=== PATIENT | male | born 1945 | race Caucasian/White ===

== ENCOUNTER 2016-12-24 15:34 | Inpatient (IN) ==
--- NOTE | 2016-12-24 15:55 | Emergency Department Note ---
Jovani Barnett Manpreet, am scribing for, and in the presence of, Eduardo Maradiaga MD 15: 50. Ashwini Barnett James D, MD, personally performed the services described in this documentation, ascribed by Alexandro Hahn in my presence, and it is both accurate and complete 552 . Arrival - Arrival Chief Complaint: GI Bleed/Rectal Stated Complaint: gi bleed Mode of Arrival: Stretcher Limitations: No Limitations Source: Patient, Old Records Reviewed, RN Notes Reviewed Time Seen by Provider: 12/24/16 15:43 - History of Present Illness HPI Narrative: Pt is a 71 y/o male, with PMHx of HTN, who was transferred from [facility] for CC of GI bleeding. Pt states his first stool was dark but then the following stools were bright red. Pt was scoped by Dr. Silva 3 years ago and pt takes an Aleve qd. Pt denies vomiting but c/o abd pain. No other pains/complaints reported to ED. Onset (ago): hour(s) Consistency: constant Severity: moderate Severity scale (1-10): 3 Quality: cramping Allergies/Adverse Reactions: Allergies Allergy/AdvReac Type Severity Reaction Status Date / Time atorvastatin [From Lipitor] Allergy Unknown/Unable Verified 12/24/16 15:47 to obtain meloxicam [From Mobic] Allergy Unknown/Unable Verified 12/24/16 15:47 to obtain Home Medications: Home Medications Medication Instructions Recorded Confirmed Type Acetaminophen Tab [Tylenol Tab] 500 mg PO DAILY PRN 12/24/16 12/24/16 History Calcium (Carbonate) [Caltrate 600] 600 mg PO DAILY 12/24/16 12/24/16 History Carbidopa/Levodopa Cr 50-200 1 tablet PO DAILY 12/24/16 12/24/16 History [Sinemet Cr 50-200] Carvedilol [Coreg] 25 mg PO BID 12/24/16 12/24/16 History Fosinopril Sodium 40 mg PO DAILY 12/24/16 12/24/16 History Gluc Peña/Chondro Peña A/Vit C/Mn 1 each PO BID 12/24/16 12/24/16 History [Glucosamine Chondroitin Tab] Methylcellulose [Fiber Laxative] 500 mg PO DAILY 12/24/16 12/24/16 History Mv-Mins/Folic/Lycopene/Ginkgo [One 1 each PO DAILY 12/24/16 12/24/16 History Daily Men's 50+ Tablet] Naproxen Sodium [Naproxen Sodium 220 mg PO BID 12/24/16 12/24/16 History Tab] Simvastatin 40 mg PO BEDTIME 12/24/16 12/24/16 History Ubidecarenone [Co Q-10] 100 mg PO DAILY 12/24/16 12/24/16 History metFORMIN [Glucophage] 500 mg PO BID 12/24/16 12/24/16 History Review of System - Review of System 12 point system: reviewed and no additional remarkable complaints except as stated - Review of System Constitutional: Absent: chills, diaphoresis, fever Respiratory: Absent: cough, respiratory distress Cardiovascular: Absent: chest pain, dyspnea on exertion Gastrointestinal: Present: abdominal pain, nausea, melena, hematochezia. Absent : vomiting Musculoskeletal: Absent: back pain Medical,Surgical,& Family Hx - Family History Family History: Reports;: Family Diabetes - Social History Smoking Status: Former smoker Exam Vital Signs: Vital Signs Temperature 97.9 F 12/24/16 15:42 Pulse Rate 122 H 12/24/16 15:42 Respiratory Rate 18 12/24/16 15:42 Blood Pressure 134/91 12/24/16 15:42 O2 Sat by Pulse Oximetry 98 12/24/16 15:42 GENERAL: This is a well-nourished well-developed white male in no apparent distress. VITAL SIGNS: Reviewed HEENT: Head is atraumatic and normocephalic. Pupils are equal round react to light. Extraocular movements are intact. Oropharynx is benign with moist mucous membranes. NECK: Neck is soft and supple without tenderness. There are no masses. There is no lymphadenopathy. LUNGS: Lungs are clear to auscultation. Chest rises symmetrically. There is no chest wall tenderness. CV: Heart is regular rate and rhythm without murmurs rubs or gallops. ABDOMEN: Abdomen is soft, nontender to palpation. There are no abdominal abnormal masses palpated. There is no organomegaly. Bowel sounds are present and active. SKIN: Skin is warm and dry. No rash. EXTREMITIES: Patient has full range of motion without tenderness. There is no pedal edema. NEUROLOGIC: Awake alert and oriented 4. Cranial nerves II through XII are grossly intact. Motor is 5 over 5 in all extremities bilaterally. Course - Consultations Consultation #1: Discussed with Dr. Pemberton. Patient will be admitted to his service. Initial orders written for him. He will assume patient's care upon arrival to the [facility]. Time: 15:54 Results - Labs Lab Results: I have reviewed the patients labs Labs: Lab performed at [facility] and reviewed by me: CBC: WBCs 14,800, hemoglobin 12.7, hematocrit 38.9, platelet count 152,000 INR 1.09 Chemistry: Sodium 138, potassium 7.6, chloride 106, CO2 22, BUN 63, creatinine 1.2, glucose 312, ALT 15, AST 10, total bilirubin 0.8 - EKG EKG results: interpreted by ERMD - Impressions EKG performed at [facility]: Sinus tachycardia with a rate of 105 , right bundle branch block, left posterior fascicular block. Disposition Clinical Impression: Acute GI bleeding, Hyperkalemia, Essential hypertension Case discussed with: patient Disposition: Still a Patient Condition: Stable Time of Disposition: 15:54
[2016-12-24 15:59] LABS: Basophils % 0.3 % (0.0-0.8); Eosinophils % 0.1 % (0.00-10.9); Hematocrit 36.7 VOL% (42.0-52.0); Hemoglobin 12.7 GM/DL (14.0-18.0); Immature Granulocytes % 1.9 %; Immature Granulocytes Absolute 0.29 #; Lymphocytes # 2.7 10*3/uL (1.4-4.0); Lymphocytes % 17.6 % (21.2-54.2); Mean Corpuscular HGB Conc 34.6 GM/DL (32-36); Mean Corpuscular Hemoglobin 29 PG (27-34); Mean Corpuscular Volume 82.5 FL (87-102); Monocytes # 0.6 10*3/uL (0.11-0.8); Monocytes % 4.2 % (1.7-12.7); Neutrophils # 11.5 10*3/uL (1.4-7.4); Neutrophils % 75.9 % (38.7-73.9); Platelet Count 146 T/CUMM (130-400); Red Blood Count 4.45 MC/CUMM (3.8-5.5); Red Cell Distribution Width 13.2 % (9.3-17.3); White Blood Count 15.1 T/CUMM (4-12)
[2016-12-24 16:17] LABS: INR 1.1; Partial Thromboplastin Time 24.7 SECS (0-40)
--- NOTE | 2016-12-24 16:19 | XRay Report ---
XR abdomen complete w decub Indication: Gastrointestinal hemorrhage Comparison: None available Findings: No free fluid or free air seen. The bowel gas pattern appears within normal limits. No abnormal calcifications are present. No other abnormality is identified. Impression: No evidence of abnormality demonstrated PROCEDURE INTERPRETED AT [facility] DEPARTMENT OF RADIOLOGY Final Report Signed by: Dr. Gerardo Luther
[2016-12-24 16:22] LABS: Calcium 7.9 MG/DL (8.5-10.1); Osmolality,Calculated 302.7 MOS/KG (273-304); Potassium 5.2 MMOL/L (3.5-5.1)
[2016-12-24] MEDS ORDERED: GLUCAGON 1 MG VIAL IM PRN (17:41)
[2016-12-24] MEDS ORDERED: ONDANSETRON 4 MG/2 ML VIAL IV PRN (17:41)
[2016-12-24] MEDS ORDERED: ACETAMINOPHEN 325 MG TABLET PO PRN (17:41)
[2016-12-24] MEDS ORDERED: DEXTROSE 50% 25 GM/50 ML VIAL IV PRN (17:41)
[2016-12-24] MEDS: SODIUM CHLORIDE 0.9% 1,000 ML IV SCH (18:18)
[2016-12-24] MEDS ORDERED: SODIUM CHLORIDE 0.9% 250 ML IV PRN (18:20)
[2016-12-24] MEDS: INSULIN LISPRO 100 UNIT/ML SUBCUT SCH ×2 (18:27→21:37)
--- NOTE | 2016-12-24 18:45 | Internal Med History&Physical ---
Assessment and Plan (1) Acute GI bleeding Status: Acute Assessment and plan: 71-year-old male admitted to acute care * Acute GI bleeding. Most likely upper GI bleeding with melanotic stools and elevated BUN. Patient has been started on IV fluids. Will do serial H&H and transfuse as needed. GI has been consulted. Probably related to nonsteroidal use. He will probably require an EGD. He had his last EGD by Dr. Silva about 3 years ago. * Hypertension. Will watch blood pressure. Will hold medications * Diabetes. Will keep him on sliding scale. * Hyperkalemia. It is better. Will hold IRENE inhibitor * Coronary artery disease. Stable. * Discussed with patient and his Current Visit: Yes (2) Diabetes Status: Acute Current Visit: Yes (3) Coronary artery disease Status: Acute Current Visit: Yes (4) COPD (chronic obstructive pulmonary disease) Status: Acute Current Visit: Yes (5) Obstructive sleep apnea Status: Acute Current Visit: Yes (6) Dyslipidemia Status: Acute Current Visit: Yes (7) Essential hypertension Status: Acute Current Visit: Yes (8) Hyperkalemia Status: Acute Current Visit: Yes History of Present Illness Chief complaint: Rectal bleeding History of present illness: Mr. Sanchez is a 71 year old male history of coronary artery disease, hypertension , diabetes who was transferred from [place] with complaints of dark black stools since this morning. It was associated with abdominal discomfort. He had several dark melanotic bowel movements. He denies any hematemesis or hematochezia. He denies any chest pain or shortness of breath. He has been taking Aleve twice a day for back pain. He denies any fever or chills. His blood sugars have been running slightly high today. Patient lives at home with his . He is a former smoker. Home Medications Medication Instructions Recorded Confirmed Type Acetaminophen Tab [Tylenol Tab] 500 mg PO DAILY PRN 12/24/16 12/24/16 History Calcium (Carbonate) [Caltrate 600] 600 mg PO DAILY 12/24/16 12/24/16 History Carbidopa/Levodopa Cr 50-200 1 tablet PO DAILY 12/24/16 12/24/16 History [Sinemet Cr 50-200] Carvedilol [Coreg] 25 mg PO BID 12/24/16 12/24/16 History Fosinopril Sodium 40 mg PO DAILY 12/24/16 12/24/16 History Gluc Peña/Chondro Peña A/Vit C/Mn 1 each PO BID 12/24/16 12/24/16 History [Glucosamine Chondroitin Tab] Methylcellulose [Fiber Laxative] 500 mg PO DAILY 12/24/16 12/24/16 History Mv-Mins/Folic/Lycopene/Ginkgo [One 1 each PO DAILY 12/24/16 12/24/16 History Daily Men's 50+ Tablet] Naproxen Sodium [Naproxen Sodium 220 mg PO BID 12/24/16 12/24/16 History Tab] [place]-3/Dha/Epa/Fish Oil [Fish Oil 1 each PO DAILY 12/24/16 12/24/16 History 1,360 mg Softgel] Simvastatin 40 mg PO BEDTIME 12/24/16 12/24/16 History Ubidecarenone [Co Q-10] 100 mg PO DAILY 12/24/16 12/24/16 History metFORMIN [Glucophage] 500 mg PO BID 12/24/16 12/24/16 History Allergies Allergy/AdvReac Type Severity Reaction Status Date / Time atorvastatin [From Lipitor] Allergy Unknown/Unable Verified 12/24/16 15:47 to obtain meloxicam [From Mobic] Allergy Unknown/Unable Verified 12/24/16 15:47 to obtain Medical,Surgical,& Family Hx - Medical History Cardio: History of: CHF, CAD, Hypertension Endocrine: History of: Diabetes Mellitus (NIDDM) Respiratory: History of: COPD, Obstructive Sleep Apnea (On CPAP) Musculoskeletal: History of: Back/Neck Problems - Surgical History Abdominal Surgeries: Surgical HX of: Hernia Repair Orthopedic Surgeries: Surgical HX of;: Orthopedic Surgery (tendon repair in hand ), Spinal Surgery, Total Knee Replacement (Right total knee replacement 2015) - Family History Family History: Reports;: Family Cancer (brother/sister- liver/lung), Family Diabetes (mother), Family Hypertension (mother) Denies;: Family Anesthesia Reaction, Family Heart Disease, Family Hematology , Family Psychiatric Problems, Family Stroke, Additional Family History - Social History Smoking Status: Former smoker Frequency of Alcohol Use: None Type of Drug Use: None Marital Status: Lives With:: Spouse Functional capacity: independent ambulation 12 point system: reviewed and no additional remarkable complaints except as stated (As mentioned in HPI) Exam - Constitutional Vitals: Period Temp Pulse Resp BP Sys/Rosas Pulse Ox Last 24 Hr 97.9 F-98.2 F 110-122 17-21 108-134/70-91 95-98 Exam: Examination: GENERAL: NAD. HEENT: PERRLA. EOMI. Mucous membranes are moist. NECK: Neck is supple. No JVD. No carotid bruit. No thyromegaly. CVS: Tachycardic. S1 and S2 are normal. RESPIRATORY: Lungs are clear. No rales or rhonchi. ABDOMEN: Soft but slightly tender in epigastric region. Bowel sounds are present. No hepatosplenomegaly. No rebound or rigidity EXT: No edema. Peripheral pulses are present. MATRIX REPAIRER: Patient is awake, alert and oriented to time place and person. Cranial nerves II through XII are grossly intact. Motor strength is 5 over 5 both upper and lower extremities. SKIN: Warm and dry. MSK: No obvious deformity. Results - Labs CBC & BMP: 12/24/16 15:50 12/24/16 15:50 Lab Results: I have reviewed the past 24 hour labs
[2016-12-24] MEDS ORDERED: ACETAMINOPHEN 500 MG TABLET PO PRN (19:00)
[2016-12-24] MEDS: DOCUSATE SODIUM 100 MG CAPSULE PO SCH (20:52)
[2016-12-24] MEDS: SIMVASTATIN 40 MG TABLET PO SCH (20:53)
[2016-12-24 21:36] LABS: Hematocrit 32.8 VOL% (42.0-52.0); Hemoglobin 11.3 GM/DL (14.0-18.0)
[2016-12-25 07:18] LABS: Basophils % 0.3 % (0.0-0.8); Eosinophils # 0.1 10*3/uL (0.0-0.87); Eosinophils % 0.7 % (0.00-10.9); Hematocrit 29.2 VOL% (42.0-52.0); Immature Granulocytes % 1.6 %; Immature Granulocytes Absolute 0.14 #; Lymphocytes # 2.5 10*3/uL (1.4-4.0); Lymphocytes % 28.1 % (21.2-54.2); Mean Corpuscular HGB Conc 34.2 GM/DL (32-36); Mean Corpuscular Hemoglobin 28 PG (27-34); Mean Corpuscular Volume 81.6 FL (87-102); Mean Platelet Volume 10.3 FL (9.6-12.0); Monocytes # 0.7 10*3/uL (0.11-0.8); Monocytes % 7.4 % (1.7-12.7); Neutrophils # 5.6 10*3/uL (1.4-7.4); Neutrophils % 61.9 % (38.7-73.9); Platelet Count 110 T/CUMM (130-400); Red Blood Count 3.58 MC/CUMM (3.8-5.5); Red Cell Distribution Width 13.2 % (9.3-17.3)
[2016-12-25 07:38] LABS: Calcium 7.8 MG/DL (8.5-10.1); Osmolality,Calculated 296.1 MOS/KG (273-304)
[2016-12-25] MEDS: SODIUM CHLORIDE 0.9% 1,000 ML IV SCH ×3 (08:55→21:23)
[2016-12-25] MEDS: INSULIN LISPRO 100 UNIT/ML SUBCUT SCH ×4 (08:56→21:25)
[2016-12-25] MEDS: CALCIUM (CARBONATE) 600 MG TABLET PO SCH (08:56)
[2016-12-25] MEDS: DOCUSATE SODIUM 100 MG CAPSULE PO SCH ×2 (08:57→21:25)
[2016-12-25] MEDS: CARBIDOPA/LEVODOPA CR 50-200 MG TABLET PO SCH (08:57)
[2016-12-25] MEDS: OMEGA 3 ACID ETHYL ESTERS 1 GM CAPSULE PO SCH (08:58)
[2016-12-25] MEDS ORDERED: PANTOPRAZOLE 40 MG TABLET PO SCH (09:00)
[2016-12-25] MEDS ORDERED: METHYLCELLULOSE 500 MG TABLET PO SCH (09:00)
--- NOTE | 2016-12-25 10:32 | Internal Med Progress Note ---
Assessment and Plan (1) Acute GI bleeding Status: Acute Assessment and plan: 71-year-old male admitted to acute care * Acute GI bleeding. Hematocrit has decreased further. He is hemodynamically stable. GI to see patient. Possible EGD in the bone * Hypertension. Will watch blood pressure. * Diabetes. Will keep him on sliding scale. * Coronary artery disease. Stable. * Discussed with patient Current Visit: Yes (2) Diabetes Status: Acute Current Visit: Yes (3) Coronary artery disease Status: Acute Current Visit: Yes (4) COPD (chronic obstructive pulmonary disease) Status: Acute Current Visit: Yes (5) Obstructive sleep apnea Status: Acute Current Visit: Yes (6) Dyslipidemia Status: Acute Current Visit: Yes (7) Essential hypertension Status: Acute Current Visit: Yes (8) Hyperkalemia Status: Acute Current Visit: Yes Internal Medicine - PN: Subj Interval history: He is feeling better this morning. He is still having black stool. He denies any chest pain or shortness of breath. He is still having midepigastric pain but it is better Exam (Progress Note) - Constitutional Vitals: Period Temp Pulse Resp BP Sys/Rosas Pulse Ox Last 24 Hr 97.0 F-98.4 F 88-126 16-21 99-134/60-91 95-98 Exam: Examination: GENERAL: NAD. NECK: Neck is supple. CVS: Tachycardic. S1 and S2 are normal. RESPIRATORY: Lungs are clear. ABDOMEN: Soft but slightly tender in epigastric region. EXT: No edema. TABLE ASSEMBLER METAL: Nonfocal SKIN: Warm and dry. MSK: No obvious deformity. Results - Labs CBC & BMP: 12/25/16 06:08 12/25/16 06:08 Lab Results: I have reviewed the past 24 hour labs
--- NOTE | 2016-12-25 11:37 | Gastrointestinal Consult Note ---
Assessment and Plan - Time spent with patient Time spent with patient: Greater than 30 minutes (1) Melena Status: Acute Current Visit: Yes (2) Hematochezia Status: Acute Current Visit: Yes (3) Acute post-hemorrhagic anemia Status: Acute Current Visit: Yes (4) Acute GI bleeding Status: Acute Assessment and plan: PLEASE NOTE -- automatic citation of patient information is unavoidable in this electronic note. I have made a reasonable effort to review the information cited , but it is not a part of my evaluation, impression, or recommendation unless specifically discussed in the dictated text that follows. As well, voice recognition software was used in the creation of this clinical note. Reasonable effort was made to identify and correct gross errors. Despite proofreading, errors in field services analyst may be present, including nonsense verbiage at times. If you encounter such an error, please contact me at for discussion and correction. -- Dr. Ingram Chief complaint/Consult Question: Melena with acute posthemorrhagic anemia Consult requested by: Hospitalist serviceNilay History of present illness: This is a new patient, a 71-year-old man with colonoscopy 3 years ago presenting with melena that started yesterday morning, associated with very mild abdominal soreness, stool frequency, approximately 9-10 bowel movements yesterday. Patient reporting melena as well as some red blood. He has only had one bowel movement today, and states that he is feeling well. Denied abdominal pain, diarrhea, fevers, nausea, vomiting, heartburn, regurgitation, dysphagia, changes in his weight. Only symptomatology leading up to this event was nighttime flatulence for 1 or 2 nights, and notable left red eye, not associated with pain or vision changes, at which time his RN encouraged him to decrease his NSAIDs. Denies any shortness of breath, chest pain, orthostasis. Patient is taking naproxen twice daily, no other blood thinners. He was given a full diet this morning which he tolerated well. Upon admission, hemoglobin was 12.2 is now decreased to 10, normal platelets, creatinine 1.1 , INR 1.1 GI review of systems included: heartburn, regurgitation, early satiety, dysphagia, odynophagia, abdominal pain, nausea, vomiting, hematemesis, weight loss, weight gain, fever, chills, fatigue, decreased appetite, diarrhea, constipation, hematochezia, melena, bloating, malodorous flatus, anal pain, or NSAID use, and was negative except as noted above. REVIEW OF SYSTEMS: Complete other review of systems negative except as noted in the HPI: Chronic joint pain for years, including left hip, neck for he had surgery, right knee that he had replaced recently. Outpatient medications: [Personally reviewed No PPI Naproxen twice daily Inpatient medications: Personally reviewed Protonix 40 mg p.o. daily Past Medical History: personally reviewed -prior severe systolic CHF, reported resolved -benign neoplasm of the colon Social history: [prior tobacco. negative Alcohol Family history: No GI related disease or malignancy Brother with lung cancer, another brother with prostate cancer PHYSICAL EXAMINATION: CONSTITUTIONAL: Vital signs reviewed as documented above. In no acute distress. Nontoxic-appearing. EYES: Anicteric conjunctiva. Extra-ocular movements are intact and symmetric. Left eye with mild diffuse erythema. EARS: Able to hear speech at conversational volume level, no external trauma/ masses. MOUTH: No oral/mouth lesions or ulcers. NECK: No masses or crepitus. Thyroid is of normal size and symmetric. HEART: Regular rate, regular rhythm LUNGS: Clear to auscultation bilaterally no increased work of breathing or accessory muscle use. GI/ABDOMEN: Nonobese abdomen, soft, nontender to deep palpation diffusely in the abdomen, no rebound tenderness, nondistended, no rigidity. No palpable mass. No appreciable hepatosplenomegaly. SKIN: No rash on face, arms, or hands. No palpable lesions MUSCULOSKELETAL: Normal gait. Muscle tone appears normal without any abnormal movements. PSYCH: Normal affect. Alert and oriented to person, place, and time. Laboratory: Personally reviewed Significant for hemoglobin drop from 12.7-11.3-10.0/12 hours. MCV 82.5, platelet count 146 dropped to 110 INR 1.1 BUN on admission 68, creatinine 1.1, now improved to 41, 0.8 Radiology: Personally reviewed reports and images Abdominal x-ray with no free fluid or air seen, normal bowel gas pattern, no abnormal calcifications. Assessments: #Gastrointestinal bleeding: Acute. Suspect upper GI bleed with the presence of melena, significant elevation of BUN to creatinine ratio. Patient not on any blood thinners, normal INR. Suspect most likely etiology is peptic ulcer disease from chronic NSAID use. Other differential diagnosis include GI related malignancy, AVM, visible vessel versus other. Patient with normal colonoscopy reported 3 years ago, without family history. Bright red blood mixed in the stool cannot eliminate the possibility of lower GI bleed versus rapid upper GI bleed, although patient clinically very stable. Receive full diet overnight and this morning, making EGD relatively contraindicated today, and no apparent acute need. #acute posthemorrhagic anemia #Other specified counseling -- The patient was seen for greater than 30 minutes. The patient was counseled for greater than 50% of this time regarding differential diagnosis, likely diagnosis, diagnostic and therapeutic alternatives, risks/benefits/alternatives of medications and procedures, and plan of care generally. The patient expressed understanding and wishes to proceed. Recommendations: -Change patient clear liquid diet -Change Protonix to 40 mg IV twice daily -Stop all NSAIDs now and as an outpatient indefinitely, Tylenol is safe, up to 3000 mg daily for pain -N.p.o. at midnight for EGD tomorrow -EGD Monday with Dr. Silva -If no source of bleeding identified on EGD, patient may require colonoscopy on Monday, pending clinical course -Continue to monitor vital signs, hemoglobin, fluid resuscitation and transfusion for hemoglobin less than 8 -Consider IV or oral iron replacement if transfusion is not needed during this admission Helen Ingram MD, MPH STAFF EXCAVATING SUPERVISOR Current Visit: Yes History of Present Illness History of present illness: Mr. Sanchez is a 71 year old male Home Medications Medication Instructions Recorded Confirmed Type Acetaminophen Tab [Tylenol Tab] 500 mg PO DAILY PRN 12/24/16 12/24/16 History Calcium (Carbonate) [Caltrate 600] 600 mg PO DAILY 12/24/16 12/24/16 History Carbidopa/Levodopa Cr 50-200 1 tablet PO DAILY 12/24/16 12/24/16 History [Sinemet Cr 50-200] Carvedilol [Coreg] 25 mg PO BID 12/24/16 12/24/16 History Fosinopril Sodium 40 mg PO DAILY 12/24/16 12/24/16 History Gluc Peña/Chondro Peña A/Vit C/Mn 1 each PO BID 12/24/16 12/24/16 History [Glucosamine Chondroitin Tab] Methylcellulose [Fiber Laxative] 500 mg PO DAILY 12/24/16 12/24/16 History Mv-Mins/Folic/Lycopene/Ginkgo [One 1 each PO DAILY 12/24/16 12/24/16 History Daily Men's 50+ Tablet] Naproxen Sodium [Naproxen Sodium 220 mg PO BID 12/24/16 12/24/16 History Tab] [place]-3/Dha/Epa/Fish Oil [Fish Oil 1 each PO DAILY 12/24/16 12/24/16 History 1,360 mg Softgel] Simvastatin 40 mg PO BEDTIME 12/24/16 12/24/16 History Ubidecarenone [Co Q-10] 100 mg PO DAILY 12/24/16 12/24/16 History metFORMIN [Glucophage] 500 mg PO BID 12/24/16 12/24/16 History Allergies Allergy/AdvReac Type Severity Reaction Status Date / Time atorvastatin [From Lipitor] Allergy Unknown/Unable Verified 12/24/16 15:47 to obtain meloxicam [From Mobic] Allergy Unknown/Unable Verified 12/24/16 15:47 to obtain Medical,Surgical,& Family Hx - Medical History Cardio: History of: CHF, CAD, Hypertension Endocrine: History of: Diabetes Mellitus (NIDDM) Respiratory: History of: COPD, Obstructive Sleep Apnea (On CPAP) Musculoskeletal: History of: Back/Neck Problems - Surgical History Abdominal Surgeries: Surgical HX of: Hernia Repair Orthopedic Surgeries: Surgical HX of;: Orthopedic Surgery (tendon repair in hand ), Spinal Surgery, Total Knee Replacement (Right total knee replacement 2015) - Family History Family History: Reports;: Family Cancer (brother/sister- liver/lung), Family Diabetes (mother), Family Hypertension (mother) Denies;: Family Anesthesia Reaction, Family Heart Disease, Family Hematology , Family Psychiatric Problems, Family Stroke, Additional Family History - Social History Smoking Status: Former smoker Frequency of Alcohol Use: None Type of Drug Use: None Exam - Constitutional Vitals: Period Temp Pulse Resp BP Sys/Rosas Pulse Ox Last 24 Hr 97.0 F-98.4 F 88-126 16-21 99-134/60-91 95-98 Results - Labs CBC & BMP: 12/25/16 06:08 12/25/16 06:08
[2016-12-25] MEDS: MULTIVITAMIN (CENTRUM) TABLET PO SCH (11:57)
[2016-12-25] MEDS: COENZYME Q10 100 MG CAPSULE PO SCH (11:57)
[2016-12-25] MEDS: PANTOPRAZOLE 40 MG VIAL IV SCH ×2 (13:04→21:24)
[2016-12-25] MEDS: CARVEDILOL 3.125 MG TABLET PO SCH (21:24)
[2016-12-25] MEDS: SIMVASTATIN 40 MG TABLET PO SCH (21:24)
[2016-12-26 06:57] LABS: Calcium 7.7 MG/DL (8.5-10.1); Osmolality,Calculated 281.4 MOS/KG (273-304); Potassium 3.6 MMOL/L (3.5-5.1)
[2016-12-26 07:35] LABS: Basophils % 0.2 % (0.0-0.8); Eosinophils # 0.1 10*3/uL (0.0-0.87); Eosinophils % 1.6 % (0.00-10.9); Hematocrit 22.7 VOL% (42.0-52.0); Immature Granulocytes Absolute 0.15 #; Lymphocytes # 1.5 10*3/uL (1.4-4.0); Lymphocytes % 29.3 % (21.2-54.2); Mean Corpuscular HGB Conc 35.2 GM/DL (32-36); Mean Corpuscular Hemoglobin 29 PG (27-34); Mean Corpuscular Volume 81.1 FL (87-102); Mean Platelet Volume 10.1 FL (9.6-12.0); Monocytes # 0.4 10*3/uL (0.11-0.8); Monocytes % 7.7 % (1.7-12.7); Neutrophils # 2.9 10*3/uL (1.4-7.4); Neutrophils % 58.2 % (38.7-73.9); Red Cell Distribution Width 13.2 % (9.3-17.3)
[2016-12-26 07:36] LABS: Platelet Count 80 T/CUMM (130-400)
[2016-12-26 07:39] LABS: Hypochromasia 1+; Ovalocytes Slight; Platelet Estimate Decreased
[2016-12-26 07:40] LABS: Microcytosis Slight
--- NOTE | 2016-12-26 09:00 | Internal Med Progress Note ---
Assessment and Plan (1) Acute GI bleeding Status: Acute Assessment and plan: 71-year-old male admitted to acute care * Acute GI bleeding. Hematocrit is much lower at 22. He will be transfused 2 units of packed RBCs. He is hemodynamically stable. He will have an EGD done today * Hypertension. Will watch blood pressure. * Diabetes. Will keep him on sliding scale. * Coronary artery disease. Stable. * Discussed with patient and his Current Visit: Yes (2) Diabetes Status: Acute Current Visit: Yes (3) Coronary artery disease Status: Acute Current Visit: Yes (4) COPD (chronic obstructive pulmonary disease) Status: Acute Current Visit: Yes (5) Obstructive sleep apnea Status: Acute Current Visit: Yes (6) Dyslipidemia Status: Acute Current Visit: Yes (7) Essential hypertension Status: Acute Current Visit: Yes (8) Hyperkalemia Status: Acute Current Visit: Yes Internal Medicine - PN: Subj Interval history: He is feeling better this morning. Patient had emesis which was coffee-ground last night. He denies any abdominal pain now. He denies any nausea or vomiting since last night Exam (Progress Note) - Constitutional Vitals: Period Temp Pulse Resp BP Sys/Rosas Pulse Ox Last 24 Hr 96.9 F-98.0 F 64-83 18-21 100-123/52-71 92-97 Exam: Examination: GENERAL: NAD. NECK: Neck is supple. CVS: Tachycardic. S1 and S2 are normal. RESPIRATORY: Lungs are clear. ABDOMEN: Soft and nontender EXT: No edema. FURNACE TAPPER: Nonfocal SKIN: Warm and dry. MSK: No obvious deformity. Results - Labs CBC & BMP: 12/26/16 07:03 12/26/16 05:24 Lab Results: I have reviewed the past 24 hour labs
--- NOTE | 2016-12-26 09:36 | EKG Report ---
Stationary ECG Study [facility] Test Date: 12/26/2016 8:27:52 AM Pat Name: RUBIA MENDEZ Department: Room: 541 Gender: M Clinical Instructor: CARMELO : 1945 Requested by: Rocael Chowdary Order Number: [id number] Reading MD: JULISSA THIBODEAUX Intervals [place] Rate: 67 P: 76 WV: 214 QRS: 97 QRSD: 152 T: 87 QT: 425 QTc: 440 Interpretive Statements SINUS RHYTHM WITH PROLONGED WV INTERVAL WITH OCCASIONAL VENTRICULAR PREMATURE COMPLEXES RIGHT BUNDLE BRANCH BLOCK LOW VOLTAGE IN THE LIMB LEADS Electronically Signed On 12-27-16 05:34:04 CDT by JULISSA THIBODEAUX [email or web address]
[2016-12-26] MEDS: SODIUM CHLORIDE 0.9% 1,000 ML IV SCH ×2 (09:44→17:03)
[2016-12-26] MEDS: Gluc Su/Chondro Su A/Vit C/Mn [Glucosamine Chondroitin Tab] 1 EA PO SCH ×3 (09:44→21:00)
[2016-12-26] MEDS: INSULIN LISPRO 100 UNIT/ML SUBCUT SCH ×4 (09:44→21:00)
[2016-12-26] MEDS ORDERED: LIDOCAINE 2% 5 ML VIAL ONE (12:17)
[2016-12-26] MEDS ORDERED: PROPOFOL 200 MG/20 ML VIAL IV ONE (12:17)
--- NOTE | 2016-12-26 12:18 | History and Physical Update ---
History and Physical Update - History and Physical H&P was reviewed, the patient examined and there: are no changes in the patients condition since last H&P was completed. - Physical Exam Mental Status: alert and oriented Heart: regular rate and rhythm Lung: clear to auscultation Abdomen: within normal limits Vitals: within normal limits
--- NOTE | 2016-12-26 12:25 | Operative Note ---
Date of procedure: 12/26/16 Pre-op diagnosis: GI bleed with melena Procedure: Procedure: Esophagogastroduodenoscopy Brief clinical abstract: 71-year-old male was admitted onset of melena. He also had one episode of coffee-ground emesis last night. Patient's hemodynamics have been normal since presentation but hemoglobin has fallen to 8.0 and he was transfused this morning. Indication for procedure: Upper GI bleeding Endoscopic findings:[After informed consent was obtained, the patient was placed in the left lateral decubitus position. The gastroscope was inserted in the upper esophagus under direct vision with no resistance encountered. Esophageal mucosa appeared normal with squamocolumnar junction sharply demarcated above a small hiatal hernia approximately 1-2 cm in length. The endoscope was advanced in the stomach which was carefully examined including retroflexed view of the cardia and fundus. No blood was seen in the stomach. Some scattered areas of subepithelial hemorrhage were noted in the proximal fundus and could be related to recent vomiting. Remainder the stomach appeared normal. The pyloric channel was normal. In the apex of the duodenal bulb there was an approximately 1 cm diameter white based ulcer with no visible vessel or adherent clot. Second and third portion of the duodenum were normal. The endoscope was removed and patient appeared to tolerate the procedure well. Impression: #1 duodenal bulb ulcer-appears to be source of bleeding; appearance suggests low risk of further significant bleeding #2 small hiatal hernia Recommendations: Continue PPI therapy for now. Advance diet and could probably discharge tomorrow if stable. With duodenal bulb location of ulcer, would plan treatment for Helicobacter pylori. Also ask about nonsteroidal use and have him discontinue if taking. Anesthesia: MAC Surgeon / Physician: Jethro Silva Estimated blood loss: none Specimens: none sent Condition: stable Disposition: post procedure unit Results - Labs CBC & BMP: 12/26/16 07:03 12/26/16 05:24 Discharge Plan - Discharge Medications No Action Ubidecarenone [Co Q-10] 100 mg PO DAILY Methylcellulose [Fiber Laxative] 500 mg PO DAILY Naproxen Sodium [Naproxen Sodium Tab] 220 mg PO BID Calcium (Carbonate) [Caltrate 600] 600 mg PO DAILY Acetaminophen Tab [Tylenol Tab] 500 mg PO DAILY PRN PRN Reason: Pain Mv-Mins/Folic/Lycopene/Ginkgo [One Daily Men's 50+ Tablet] 1 each PO DAILY Simvastatin 40 mg PO BEDTIME Carvedilol [Coreg] 25 mg PO BID Fosinopril Sodium 40 mg PO DAILY Gluc Peña/Chondro Peña A/Vit C/Mn [Glucosamine Chondroitin Tab] 1 each PO BID metFORMIN [Glucophage] 500 mg PO BID Carbidopa/Levodopa Cr 50-200 [Sinemet Cr 50-200] 1 tablet PO DAILY [place]-3/Dha/Epa/Fish Oil [Fish Oil 1,360 mg Softgel] 1 each PO DAILY - Follow Up or Referral - Forms/Instructions
--- NOTE | 2016-12-26 13:49 | Anesthesia Post-Op ---
Anesthesia Post OP - Post Ansesthetic Evaluation Patient seen in post op: Yes Resp: within normal limits CV: within normal limits Mental: within normal limits Temp: within normal limits [id number]: within normal limits Nausea and Vomiting: within normal limits Pain: within normal limits
[2016-12-26] MEDS: COENZYME Q10 100 MG CAPSULE PO SCH (14:52)
[2016-12-26] MEDS: CALCIUM (CARBONATE) 600 MG TABLET PO SCH (14:52)
[2016-12-26] MEDS: DOCUSATE SODIUM 100 MG CAPSULE PO SCH ×2 (14:52→21:50)
[2016-12-26] MEDS: CARBIDOPA/LEVODOPA CR 50-200 MG TABLET PO SCH (14:52)
[2016-12-26] MEDS: CARVEDILOL 3.125 MG TABLET PO SCH ×2 (14:52→21:51)
[2016-12-26] MEDS: PANTOPRAZOLE 40 MG VIAL IV SCH ×2 (14:53→21:51)
[2016-12-26] MEDS: METHYLCELLULOSE 500 MG TABLET PO SCH (14:53)
[2016-12-26] MEDS: MULTIVITAMIN (CENTRUM) TABLET PO SCH (14:53)
[2016-12-26] MEDS: OMEGA 3 ACID ETHYL ESTERS 1 GM CAPSULE PO SCH (14:53)
[2016-12-26 20:02] LABS: Hematocrit 27.3 VOL% (42.0-52.0); Hemoglobin 9.4 GM/DL (14.0-18.0)
[2016-12-26] MEDS: SIMVASTATIN 40 MG TABLET PO SCH (21:50)
[2016-12-27] MEDS: SODIUM CHLORIDE 0.9% 1,000 ML IV SCH ×2 (00:12→12:13)
[2016-12-27 06:51] LABS: Basophils % 0.2 % (0.0-0.8); Eosinophils # 0.1 10*3/uL (0.0-0.87); Eosinophils % 1.3 % (0.00-10.9); Hematocrit 28.2 VOL% (42.0-52.0); Hemoglobin 9.8 GM/DL (14.0-18.0); Immature Granulocytes % 2.8 %; Immature Granulocytes Absolute 0.15 #; Lymphocytes # 1.4 10*3/uL (1.4-4.0); Lymphocytes % 26.5 % (21.2-54.2); Mean Corpuscular HGB Conc 34.8 GM/DL (32-36); Mean Corpuscular Hemoglobin 29 PG (27-34); Mean Corpuscular Volume 82.5 FL (87-102); Mean Platelet Volume 9.4 FL (9.6-12.0); Monocytes # 0.4 10*3/uL (0.11-0.8); Monocytes % 6.9 % (1.7-12.7); Neutrophils # 3.3 10*3/uL (1.4-7.4); Neutrophils % 62.3 % (38.7-73.9); Platelet Count 79 T/CUMM (130-400); Red Blood Count 3.42 MC/CUMM (3.8-5.5); Red Cell Distribution Width 13.4 % (9.3-17.3); White Blood Count 5.4 T/CUMM (4-12)
[2016-12-27 07:04] LABS: Osmolality,Calculated 282.4 MOS/KG (273-304); Potassium 3.7 MMOL/L (3.5-5.1)
[2016-12-27 07:09] LABS: Platelet Estimate Decreased
--- NOTE | 2016-12-27 09:02 | Gastrointestinal Progress Note ---
Assessment and Plan (1) Acute GI bleeding Status: Acute Assessment and plan: 12/27-no further overt bleeding. EGD findings as below. H&H is holding stable. Change to oral Protonix and discharge home on Protonix twice daily. Reemphasized importance of no NSAID use. We will plan to treat for H. pylori due to location of ulcer. Okay to discharge from GI standpoint. Follow-up as needed with Dr. Silva. Plan an addendum to followed by Dr. Silva. Current Visit: Yes Gastroenterology - PN: Subj Interval history: CC: GI bleed Patient is seen, awake and alert with family at bedside. States he had an uneventful night and is feeling better today. He denies any abdominal pain, nausea or vomiting. She denies any overt bleeding. EGD findings noted on yesterday with duodenal bulb ulcer appearing to be the source of the bleeding however low risk for further bleed as well as small hiatal hernia. Patient is tolerating his diet well and denies any pain with eating. His H&H is stable at 03/02. Abdomen soft, nontender. ROS: Denies shortness of breath or chest pain Exam (Progress Note) - Constitutional Vitals: Period Temp Pulse Resp BP Sys/Rosas Pulse Ox Last 24 Hr 96.9 F-98.3 F 54-78 16-20 88-133/42-067 92-100 General appearance: normal weight, no acute distress - Head Head exam: Present: normal inspection, normocephalic - Eye Eye exam: Present: other (Lids and conjunctive are unremarkable). Absent: scleral icterus - ENT ENT exam: Present: normal exam, normal oropharynx - Neck Neck exam: Present: normal inspection - Respiratory Respiratory exam: Present: clear to auscultation bilaterally. Absent: rales, rhonchi, wheezes - Cardiovascular Cardiovascular exam: Present: regular rate and rhythm. Absent: diastolic murmur , JVD, systolic murmur - GI/Abdominal GI/Abdominal exam: Present: normal bowel sounds, soft. Absent: ascites, distended, mass, organomegaly, tenderness - Extremities Exam Extremities exam: Present: normal inspection, full ROM - Back Exam Back exam: Present: normal inspection - Neurological Exam Neurological exam: Present: alert, oriented X3 - Psychiatric Psychiatric exam: Present: normal affect, normal mood - Skin Skin exam: Present: normal color, warm, dry Results - Labs CBC & BMP: 12/27/16 06:34 12/27/16 06:34 Lab Results: I have reviewed the past 24 hour labs
[2016-12-27] MEDS: INSULIN LISPRO 100 UNIT/ML SUBCUT SCH ×4 (09:06→22:25)
[2016-12-27] MEDS: MULTIVITAMIN (CENTRUM) TABLET PO SCH (09:07)
[2016-12-27] MEDS: METHYLCELLULOSE 500 MG TABLET PO SCH (09:07)
[2016-12-27] MEDS: OMEGA 3 ACID ETHYL ESTERS 1 GM CAPSULE PO SCH (09:07)
[2016-12-27] MEDS: CARVEDILOL 3.125 MG TABLET PO SCH ×2 (09:07→22:24)
[2016-12-27] MEDS: DOCUSATE SODIUM 100 MG CAPSULE PO SCH ×2 (09:07→22:24)
[2016-12-27] MEDS: CALCIUM (CARBONATE) 600 MG TABLET PO SCH (09:07)
[2016-12-27] MEDS: CARBIDOPA/LEVODOPA CR 50-200 MG TABLET PO SCH (09:07)
[2016-12-27] MEDS: Gluc Su/Chondro Su A/Vit C/Mn [Glucosamine Chondroitin Tab] 1 EA PO SCH ×2 (09:08→22:25)
[2016-12-27] MEDS: PANTOPRAZOLE 40 MG VIAL IV SCH (09:10)
--- NOTE | 2016-12-27 09:41 | Internal Med Progress Note ---
Assessment and Plan (1) Acute GI bleeding Status: Acute Assessment and plan: 71-year-old male admitted to acute care * Acute GI bleeding. Hematocrit is stable after transfusion. Results of EGD noted. Will watch another day with hematocrit. Patient lives far away from the hospital * Hypertension. Will watch blood pressure. * Diabetes. Will keep him on sliding scale. * Coronary artery disease. Stable. * Discussed with patient and his Current Visit: Yes (2) Diabetes Status: Acute Current Visit: Yes (3) Coronary artery disease Status: Acute Current Visit: Yes (4) COPD (chronic obstructive pulmonary disease) Status: Acute Current Visit: Yes (5) Obstructive sleep apnea Status: Acute Current Visit: Yes (6) Dyslipidemia Status: Acute Current Visit: Yes (7) Essential hypertension Status: Acute Current Visit: Yes (8) Hyperkalemia Status: Acute Current Visit: Yes Internal Medicine - PN: Subj Interval history: He is feeling better this morning. No melena or hematochezia. His abdominal pain is better Exam (Progress Note) - Constitutional Vitals: Period Temp Pulse Resp BP Sys/Rosas Pulse Ox Last 24 Hr 96.9 F-98.3 F 54-78 16-20 88-133/42-067 92-100 Exam: Examination: GENERAL: NAD. NECK: Neck is supple. CVS: Tachycardic. S1 and S2 are normal. RESPIRATORY: Lungs are clear. ABDOMEN: Soft and nontender EXT: No edema. [employer] SUPERVISOR: Nonfocal SKIN: Warm and dry. Results - Labs CBC & BMP: 12/27/16 06:34 12/27/16 06:34 Lab Results: I have reviewed the past 24 hour labs
[2016-12-27] MEDS: COENZYME Q10 100 MG CAPSULE PO SCH (12:13)
[2016-12-27 17:17] LABS: Hematocrit 27.9 VOL% (42.0-52.0); Hemoglobin 9.6 GM/DL (14.0-18.0)
[2016-12-27] MEDS ORDERED: SODIUM CHLORIDE 0.9% 250 ML IV PRN (17:50)
[2016-12-27] MEDS: SIMVASTATIN 40 MG TABLET PO SCH (22:24)
[2016-12-27] MEDS: PANTOPRAZOLE 40 MG TABLET PO SCH (22:24)
[2016-12-28 07:34] LABS: Basophils % 0.2 % (0.0-0.8); Eosinophils # 0.1 10*3/uL (0.0-0.87); Eosinophils % 2.5 % (0.00-10.9); Hematocrit 32.7 VOL% (42.0-52.0); Hemoglobin 11.1 GM/DL (14.0-18.0); Immature Granulocytes % 3.9 %; Lymphocytes # 1.5 10*3/uL (1.4-4.0); Lymphocytes % 29.8 % (21.2-54.2); Mean Corpuscular HGB Conc 33.9 GM/DL (32-36); Mean Corpuscular Hemoglobin 29 PG (27-34); Mean Corpuscular Volume 84.1 FL (87-102); Monocytes # 0.4 10*3/uL (0.11-0.8); Monocytes % 6.8 % (1.7-12.7); NRBC # 0.02 10*3/uL; Neutrophils # 2.9 10*3/uL (1.4-7.4); Neutrophils % 56.8 % (38.7-73.9); Platelet Count 78 T/CUMM (130-400); Red Blood Count 3.89 MC/CUMM (3.8-5.5); Red Cell Distribution Width 14.2 % (9.3-17.3); White Blood Count 5.2 T/CUMM (4-12)
[2016-12-28 08:07] VITALS: BP 140/75
[2016-12-28 08:08] LABS: Osmolality,Calculated 282.3 MOS/KG (273-304); Potassium 3.6 MMOL/L (3.5-5.1)
[2016-12-28 08:21] LABS: Hypochromasia Slight; Platelet Estimate Decreased
--- NOTE | 2016-12-28 08:25 | Gastrointestinal Progress Note ---
Assessment and Plan (1) Acute GI bleeding Status: Acute Assessment and plan: 12/28-H&H improved following transfusion on yesterday of 2 units packed red blood cells. No overt bleeding. Tolerating diet. Discussed H. pylori treatment at discharge. Plan an addendum to followed by Dr. Silva. 12/27-no further overt bleeding. EGD findings as below. H&H is holding stable. Change to oral Protonix and discharge home on Protonix twice daily. Reemphasized importance of no NSAID use. We will plan to treat for H. pylori due to location of ulcer. Okay to discharge from GI standpoint. Follow-up as needed with Dr. Silva. Plan an addendum to followed by Dr. Silva. Current Visit: Yes Gastroenterology - PN: Subj Interval history: CC: GI bleed Patient is seen, awake and alert ambulating around room. is at bedside. States he had an uneventful night other than not sleeping much due to he received 2 more units of packed red blood cells on yesterday evening. He denies any abdominal pain, nausea or vomiting. He is tolerating his diet well at this time. H&H is noted to be up from yesterday at . Discussed with patient the plans to treat his H. pylori upon discharge. Explained to patient to also hold his simvastatin while taking these antibiotics due to possible interaction. Patient also instructed to remain on his Protonix at twice daily at the end of the 10 days of therapy. Patient verbalizes understanding. Abdomen is soft, nontender. He is for possible discharge home today. ROS: Denies shortness of breath or chest pain Exam (Progress Note) - Constitutional Vitals: Period Temp Pulse Resp BP Sys/Rosas Pulse Ox Last 24 Hr 96.6 F-98.4 F 58-75 18-95 111-140/63-75 93-995 General appearance: normal weight, no acute distress - Head Head exam: Present: normal inspection, normocephalic - Eye Eye exam: Present: other (Lids and conjunctivae are unremarkable). Absent: scleral icterus - ENT ENT exam: Present: normal exam, normal oropharynx - Neck Neck exam: Present: normal inspection - Respiratory Respiratory exam: Present: clear to auscultation bilaterally. Absent: rales, rhonchi, wheezes - Cardiovascular Cardiovascular exam: Present: regular rate and rhythm. Absent: diastolic murmur , JVD, systolic murmur - GI/Abdominal GI/Abdominal exam: Present: normal bowel sounds, soft. Absent: ascites, distended, mass, organomegaly, tenderness - Extremities Exam Extremities exam: Present: normal inspection, full ROM - Back Exam Back exam: Present: normal inspection - Neurological Exam Neurological exam: Present: alert, oriented X3 - Psychiatric Psychiatric exam: Present: normal affect, normal mood - Skin Skin exam: Present: normal color, warm, dry Results - Labs CBC & BMP: 12/28/16 06:58 12/28/16 06:58 Lab Results: I have reviewed the past 24 hour labs
--- NOTE | 2016-12-28 09:11 | Discharge Summary ---
Hospital Course - Hospital Course Hospital Course: Patient is a 71-year-old male with history of coronary artery disease, hypertension, diabetes who was admitted with upper GI bleeding. Patient was transferred here from [place]. He had melanotic stools. His hematocrit dropped and he was transfused 2 units of packed RBCs. Patient underwent an EGD and was found to have an ulcer. Patient has been watched. His platelet count have decreased slightly. I will check his platelets and a green top. Will recheck it as office visit next week. Patient has been started back on his blood pressure and diabetic medications. Discussed with patient and his . He will be sent home on Protonix 40 mg twice a day. He is been treated for H. pylori per Dr. Silva Diagnosis - Discharge Diagnosis (1) Acute GI bleeding Status: Acute (2) Diabetes Status: Acute (3) Coronary artery disease Status: Acute (4) COPD (chronic obstructive pulmonary disease) Status: Acute (5) Obstructive sleep apnea Status: Acute (6) Dyslipidemia Status: Acute (7) Essential hypertension Status: Acute (8) Hyperkalemia Status: Acute Specialty Discharge - Follow Up or Referrals Follow up with: Dane Pemberton MD [Physician] - (Lab to be drawn on office visit) Discharge Plan - Discharge Data Disposition: Disch To Home/Self Care Condition at Discharge: Stable Discharge Diet: advance to your usual diet Activity: resume usual activities as tolerated - Discharge Medications New Amoxicillin 500 mg PO BID #40 tablet Clarithromycin 500 mg PO BID #20 tablet Pantoprazole Tab [Protonix Tab] 40 mg PO BID #60 tablet Continue Ubidecarenone [Co Q-10] 100 mg PO DAILY Methylcellulose [Fiber Laxative] 500 mg PO DAILY Calcium (Carbonate) [Caltrate 600] 600 mg PO DAILY Acetaminophen Tab [Tylenol Tab] 500 mg PO DAILY PRN PRN Reason: Pain Mv-Mins/Folic/Lycopene/Ginkgo [One Daily Men's 50+ Tablet] 1 each PO DAILY Simvastatin 40 mg PO BEDTIME Carvedilol [Coreg] 25 mg PO BID Fosinopril Sodium 40 mg PO DAILY Gluc Peña/Chondro Peña A/Vit C/Mn [Glucosamine Chondroitin Tab] 1 each PO BID metFORMIN [Glucophage] 500 mg PO BID Carbidopa/Levodopa Cr 50-200 [Sinemet Cr 50-200] 1 tablet PO DAILY [place]-3/Dha/Epa/Fish Oil [Fish Oil 1,360 mg Softgel] 1 each PO DAILY Discontinued Naproxen Sodium [Naproxen Sodium Tab] 220 mg PO BID - Follow Up or Referral Follow Up: Dane Pemberton MD [Physician] - (Lab to be drawn on office visit) - Forms/Instructions Instructions: Gastrointestinal Bleeding (DC), Anemia (DC) Additional Discharge Instructions: Appointment in 1 week with TCM. CBC and BMP. Call in medicines on discharge Exam - Constitutional Vitals: Period Temp Pulse Resp BP Sys/Rosas Pulse Ox Last 24 Hr 96.6 F-98.4 F 58-75 18-95 111-140/63-75 93-995 Exam: Examination: GENERAL: NAD. NECK: Neck is supple. CVS: Tachycardic. S1 and S2 are normal. RESPIRATORY: Lungs are clear. ABDOMEN: Soft and nontender EXT: No edema. 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 Discharge Results Procedures and tests throughout hospitalization: Pending Orders 12/28/16 08:27 Platelet Count Stat Labs on day of discharge: Labs from last 24 hours 12/28/16 12/28/16 12/28/16 07:13 06:58 06:58 WBC 5.2 RBC 3.89 Hgb 11.1 L Hct 32.7 L MCV 84.1 L MCH 29 MCHC 33.9 RDW 14.2 Plt Count 78 L MPV 10.0 Neut % (Auto) 56.8 Lymph % (Auto) 29.8 [place] % (Auto) 6.8 Eos % (Auto) 2.5 Baso % (Auto) 0.2 Neut # (Auto) 2.9 Lymph # (Auto) 1.5 [place] # (Auto) 0.4 Eos # (Auto) 0.1 Baso # (Auto) 0.0 Immature Gran % 3.9 Nucleated RBC % 0.4 Immature Gran # 0.20 Nucleated RBCs # 0.02 Platelet Estimate Decreased Hypochromasia Slight Morphology Comment Sodium 141 Potassium 3.6 Chloride 107 Carbon Dioxide 26 Anion Gap 11.6 BUN 12 Creatinine 0.70 GFR Calculation 113 BUN/Creatinine Ratio 17.00 Glucose 138 H POC Glucose 163 H Calculated Osmolality 282.3 Calcium 8.0 L Blood Type Antibody Screen Crossmatch 12/27/16 12/27/16 12/27/16 22:27 20:09 17:04 WBC RBC Hgb 9.6 L Hct 27.9 L MCV MCH MCHC RDW Plt Count MPV Neut % (Auto) Lymph % (Auto) [place] % (Auto) Eos % (Auto) Baso % (Auto) Neut # (Auto) Lymph # (Auto) [place] # (Auto) Eos # (Auto) Baso # (Auto) Immature Gran % Nucleated RBC % Immature Gran # Nucleated RBCs # Platelet Estimate Hypochromasia Morphology Comment Sodium Potassium Chloride Carbon Dioxide Anion Gap BUN Creatinine GFR Calculation BUN/Creatinine Ratio Glucose POC Glucose 150 H 163 H Calculated Osmolality Calcium Blood Type Antibody Screen Crossmatch 12/27/16 12/27/16 12/27/16 17:01 15:24 11:52 WBC RBC Hgb Hct MCV MCH MCHC RDW Plt Count MPV Neut % (Auto) Lymph % (Auto) [place] % (Auto) Eos % (Auto) Baso % (Auto) Neut # (Auto) Lymph # (Auto) [place] # (Auto) Eos # (Auto) Baso # (Auto) Immature Gran % Nucleated RBC % Immature Gran # Nucleated RBCs # Platelet Estimate Hypochromasia Morphology Comment Sodium Potassium Chloride Carbon Dioxide Anion Gap BUN Creatinine GFR Calculation BUN/Creatinine Ratio Glucose POC Glucose 204 H 166 H Calculated Osmolality Calcium Blood Type O POSITIVE Antibody Screen Negative Crossmatch See Detail DS: Provider Date of admission: 12/24/16 15:48 Primary care physician: . No PCP Attending physician on admission: Dane Pemberton MD Consults: 12/24/16 17:41 Consult to Case Mgmt/Social Srvs [CONS] Routine Reason for Case Mgmt/Social Srvs: Discharge Planning 12/24/16 18:56 Consult to Physician [CONS] Routine Comment: blood in stool Consulting Provider: Helen Ingram Consult Notification Comment: AWARE Discharging clinician: Dane Pemberton MD
[2016-12-28] MEDS: CARVEDILOL 3.125 MG TABLET PO SCH (09:42)
[2016-12-28] MEDS: DOCUSATE SODIUM 100 MG CAPSULE PO SCH (09:42)
[2016-12-28] MEDS: CALCIUM (CARBONATE) 600 MG TABLET PO SCH (09:42)
[2016-12-28] MEDS: CARBIDOPA/LEVODOPA CR 50-200 MG TABLET PO SCH (09:42)
[2016-12-28] MEDS: PANTOPRAZOLE 40 MG TABLET PO SCH (09:42)
[2016-12-28] MEDS: OMEGA 3 ACID ETHYL ESTERS 1 GM CAPSULE PO SCH (09:42)
[2016-12-28] MEDS: MULTIVITAMIN (CENTRUM) TABLET PO SCH (09:42)
[2016-12-28] MEDS: Gluc Su/Chondro Su A/Vit C/Mn [Glucosamine Chondroitin Tab] 1 EA PO SCH (10:05)
[2016-12-28] MEDS: COENZYME Q10 100 MG CAPSULE PO SCH (10:05)
[2016-12-28] MEDS: METHYLCELLULOSE 500 MG TABLET PO SCH (10:05)
[2016-12-28] MEDS: INSULIN LISPRO 100 UNIT/ML SUBCUT SCH (10:05)
== END 2016-12-28 11:05 | disposition home or self-care (01) | DRG 378 ==
LOC: EDUNIT# → N.ED 15:34 → N.EDINP 15:48 → N.5E 17:32
PROVIDERS: ADMIT Internal Medicine; ATTEND Internal Medicine